=== PATIENT | male | born 1970 | race American Indian/Alaskan Native ===

== ENCOUNTER 2017-05-23 00:46 | Emergency (ER) | payer MEDICAID ==
[2017-05-23 00:47] VITALS: BMI 47.0
[2017-05-23 01:12] VITALS: TEMP 98.4
--- NOTE | 2017-05-23 01:23 | ED PDOC ---
Arrival/HPI - General Chief Complaint: Lower Extremity Problem/Injury Time Seen by Provider: 05/23/17 00:54 Historian: Patient - History of Present Illness Narrative History of Present Illness (Text): 05/23/17 01:20 Pasha Ramirez is a 46 year old male who presents to the emergency department complaining of left lower extremity swelling today. Patient states he was recently seen at [facility] for similar complaints and prescribes antibiotics, but never filled his prescriptions. Patient denies any history of weakness/numbness/ tingling in the extremity, fever, chills, chest pain, shortness of breath, nausea, vomiting, diarrhea, urinary symptoms, back pain, neck pain, headache, dizziness, or any other complaints. Time/Duration: Other (tonight) Symptom Onset: Gradual Symptom Course: Unchanged Activities at Onset: Light Past Medical History - Provider Review Nursing Documentation Reviewed: Yes - Cardiac Hx Cardiac Disorders: No - Pulmonary Hx Asthma: Yes - Neurological Hx Neurological Disorder: No - HEENT Hx HEENT Disorder: No - Renal Hx Renal Disorder: No - Endocrine/Metabolic Hx Endocrine Disorders: No - Hematological/Oncological Hx Blood Disorders: No - Integumentary Hx Dermatological Disorder: No - Musculoskeletal/Rheumatological Hx Musculoskeletal Disorders: No Hx Back Pain: Yes (fx t-12 l-1) - Gastrointestinal Hx Gastrointestinal Disorders: No - Genitourinary/Gynecological Hx Genitourinary Disorders: No - Psychiatric Hx Depression: Yes Hx Substance Use: No - Surgical History Hx Orthopedic Surgery: Yes (pelvis/titanium rods) - Anesthesia Hx Anesthesia: Yes Hx Anesthesia Reactions: No Hx Malignant Hyperthermia: No - Suicidal Assessment Feels Threatened In Home Enviroment: No Family/Social History - Physician Review Nursing Documentation Reviewed: Yes Family/Social History: Unknown Family HX Smoking Status: Unknown If Ever Smoked Hx Alcohol Use: Yes Hx Substance Use: No Allergies/Home Meds Allergies/Adverse Reactions: Allergies EGG Allergy (Verified 05/23/17 01:17) VOMITING Review of Systems - Physician Review All systems were reviewed & negative as marked: Yes - Review of Systems Constitutional: Normal. absent: Fevers Eyes: Normal ENT: Normal Respiratory: Normal. absent: SOB, Cough Cardiovascular: Normal. absent: Chest Pain Gastrointestinal: Normal. absent: Abdominal Pain, Diarrhea, Nausea, Vomiting Genitourinary Male: Normal. absent: Dysuria, Frequency, Hematuria, Urinary Output Changes Musculoskeletal: Other (+left leg swelling). absent: Back Pain, Neck Pain Skin: Normal Neurological: Normal. absent: Headache, Dizziness Endocrine: Normal Hemo/Lymphatic: Normal Psychiatric: Normal Physical Exam Vital Signs Reviewed: Yes Vital Signs Temp Pulse Resp BP Pulse Ox 05/23/17 01:17 67 18 133/80 97 05/23/17 01:06 98.4 F Temperature: Afebrile Blood Pressure: Normal Pulse: Regular Respiratory Rate: Normal Appearance: Positive for: Well-Appearing, Non-Toxic, Comfortable Pain Distress: None Mental Status: Positive for: Alert and Oriented X 3 - Systems Exam Head: Present: Atraumatic, Normocephalic Pupils: Present: PERRL Extroacular Muscles: Present: EOMI Conjunctiva: Present: Normal Mouth: Present: Moist Mucous Membranes Neck: Present: Normal Range of Motion Respiratory/Chest: Present: Clear to Auscultation, Good Air Exchange. No: Respiratory Distress, Accessory Muscle Use Cardiovascular: Present: Regular Rate and Rhythm, Normal S1, S2. No: Murmurs Abdomen: Present: Normal Bowel Sounds. No: Tenderness, Distention, Peritoneal Signs Back: Present: Normal Inspection Upper Extremity: Present: Normal Inspection. No: Cyanosis, Edema Lower Extremity: Present: NORMAL PULSES, Normal ROM, Swelling (Bilateral lower extremity swelling), Neurovascularly Intact. No: Edema, Tenderness, Deformity, Temperature Abnormalties Neurological: Present: GCS=15, CN II-XII Intact, Speech Normal Skin: Present: Warm, Dry, Normal Color. No: Rashes Psychiatric: Present: Alert, Oriented x 3, Normal Insight, Normal Concentration Medical Decision Making ED Course and Treatment: 05/23/17 01:20 Impression: 46 year old male complaining of left lower extremity swelling tonight. Differential Diagnosis included but are not limited to: Plan: -- US Duplex Lower Extremities -- Labs, blood cultures -- Reassess and disposition Prior Visits: Notes and results from previous visits were reviewed. On 09/03/2015, pt was seen in the Emergency department for left foot pain. Pt was d/c home. Progress Notes: 05/23/17 02:58 Reviewed sono, US Duplex Lower Extremities negative for DVT. Re-evaluation Time: 06:04 Reassessment Condition: Re-examined, Improved - Lab Interpretations Lab Results: 05/23/17 01:20 05/23/17 01:20 Lab Results 05/23/17 01:20: WBC 7.9, RBC 4.21, Hgb 13.3 L, Hct 39.7 L, MCV 94.3, MCH 31.6, MCHC 33.5, RDW 14.3, Plt Count 187, MPV 10.7, Gran % 46.1 L, Lymph % (Auto) 40.6 H, Hyde % (Auto) 11.3 H, Eos % (Auto) 1.6, Baso % (Auto) 0.4, Gran # 3.64, Lymph # 3.2, Hyde # 0.9 H, Eos # 0.1, Baso # 0.03 05/23/17 01:20: Sodium 143, Potassium 4.3, Chloride 107, Carbon Dioxide 28, Anion Gap 12, BUN 20, Creatinine 1.1, Est GFR ( Amer) > 60, Est GFR (Non- Af Amer) > 60, Random Glucose 97, Calcium 9.7, Total Bilirubin 0.5, AST 21, ALT 43, Alkaline Phosphatase 65, Total Protein 6.5, Albumin 4.0, Globulin 2.5, Albumin/Globulin Ratio 1.6 - RAD Interpretation Radiology Orders: 05/23/17 01:24 DUPLEX LOWER EXTRM VEIN BILAT [US] Stat - Scribe Statement The provider has reviewed the documentation as recorded by the Scribe Ronna Ang All medical record entries made by the Scribe were at my direction and personally dictated by me. I have reviewed the chart and agree that the record accurately reflects my personal performance of the history, physical exam, medical decision making, and the department course for this patient. I have also personally directed, reviewed, and agree with the discharge instructions and disposition. Disposition/Present on Arrival - Present on Arrival Any Indicators Present on Arrival: No History of DVT/PE: No History of Uncontrolled Diabetes: No Urinary Catheter: No History of Decub. Ulcer: No History Surgical Site Infection Following: None - Disposition Have Diagnosis and Disposition been Completed?: Yes Diagnosis: Cellulitis of both lower extremities Disposition: HOME/ ROUTINE Disposition Time: 06:05 Condition: GOOD Discharge Instructions (ExitCare): Cellulitis (ED) Prescriptions: Acetaminophen 325 mg PO QID #20 tablet Sulfamethoxazole/Trimethoprim [Bactrim DS 800 mg-160 mg] 1 tab PO BID #20 tab Referrals: Joey Isaacs MD [Primary Care Provider] - Follow up with primary Forms: [employer] (Armenian)
[2017-05-23 01:33] LABS: BASO # 0.03 K/mm3 (0.0-2.0); BASO % 0.4 % (0.0-3.0); EOS # 0.1 (0.0-0.7); EOS % 1.6 % (1.5-5.0); GRAN # 3.64 (1.4-6.5); GRAN % 46.1 % (50.0-68.0); HEMATOCRIT 39.7 % (42.0-52.0); LYMPH # 3.2 (1.2-3.4); LYMPH % 40.6 % (22.0-35.0); MEAN CELL VOLUME 94.3 fl (80.0-105.0); MEAN CORPUSCULAR HEMOGLOBIN 31.6 pg (25.0-35.0); MEAN CORPUSCULAR HGB CONC 33.5 g/dl (31.0-37.0); MEAN PLATELET VOLUME 10.7 fl (7.0-11.0); MONO # 0.9 (0.1-0.6); MONO % 11.3 % (1.0-6.0); RED CELL DISTRIBUTION WIDTH 14.3 % (11.5-14.5); WHITE BLOOD COUNT 7.9 10^3/ul (4.5-11.0)
[2017-05-23 01:47] LABS: ALB/GLOB RATIO 1.6 (1.1-1.8); ALKALINE PHOSPHATASE 65 U/L (38-126); ALT/SGPT 43 U/L (7-56); AST/SGOT 21 U/L (17-59); BILIRUBIN,TOTAL 0.5 mg/dL (0.2-1.3); BLOOD UREA NITROGEN 20 mg/dL (7-21); CALCIUM 9.7 mg/dL (8.4-10.5); CARBON DIOXIDE 28 mmol/L (21-33); CHLORIDE 107 mmol/L (95-110); GFR AFRICAN-AMERICAN > 60; GLUCOSE,RANDOM 97 mg/dL (70-110); POTASSIUM 4.3 mmol/L (3.6-5.0); SODIUM 143 mmol/L (132-148); TOTAL PROTEIN 6.5 g/dL (5.8-8.3)
[2017-05-23] MEDS ORDERED: Tmp-Smz 800 mg-160 mg DS Tab PO ONE (06:08)
[2017-05-23 06:21] VITALS: BP 130/82; PULSE 69; RESP 20; O2SAT 99
--- NOTE | 2017-05-23 09:49 | US ---
HISTORY: Leg pain and swelling. Evaluate for DVT PHYSICIAN(S): Christophe Fan MD. TECHNIQUE: Duplex sonography and color-flow Doppler with graded compression were used to evaluate the deep venous systems of both lower extremities. The exam is very limited by body habitus and edema. FINDINGS: The visualized deep venous systems of both lower extremities are sonographically normal and compressible. Normal wave forms and augmentation are seen. There is no sonographic evidence for deep venous thrombosis in the visualized segments of both lower extremities. IMPRESSION: No sonographic evidence for deep venous thrombosis in the visualized segments of both lower extremities. Limited study.
== END 2017-05-23 06:32 | disposition home or self-care (01) ==
LOC: ED 00:46
DX: L03.115 Cellulitis of right lower limb (principal); L03.116 Cellulitis of left lower limb